=== PATIENT | male | born 1935 | race Caucasian/White ===

== ENCOUNTER 2021-07-06 08:07 | Inpatient (IN) ==
[2021-07-06] MEDS ORDERED: DEXAMETHASONE 4 MG/1 ML VIAL IV STA (08:16)
[2021-07-06 08:44] LABS: Basophils % 0.3 % (0.0-0.8); Eosinophils % 0.3 % (0.00-10.9); Hematocrit 37.2 VOL% (42.0-52.0); Hemoglobin 12.9 GM/DL (14.0-18.0); Immature Granulocytes % 1.5 %; Immature Granulocytes Absolute 0.16 #; Lymphocytes # 0.5 10*3/uL (1.4-4.0); Lymphocytes % 5.1 % (21.2-54.2); Mean Corpuscular HGB Conc 34.7 GM/DL (32-36); Mean Corpuscular Volume 100.3 FL (87-102); Mean Platelet Volume 10.7 FL (9.6-12.0); Monocytes % 16.6 % (1.7-12.7); Neutrophils % 76.2 % (38.7-73.9); Platelet Count 154 T/CUMM (130-400); Red Blood Count 3.71 MC/CUMM (3.8-5.5); Red Cell Distribution Width 14.1 % (9.3-17.3); White Blood Count 10.5 T/CUMM (4-12)
[2021-07-06 09:00] LABS: Albumin 2.9 G/DL (3.4-5.0); Bilirubin,Total 1.1 MG/DL (0.20-1.00); Calcium 8.9 MG/DL (8.5-10.1); Ferritin 177.7 ng/mL (26-388); Osmolality,Calculated 259.9 MOS/KG (273-304); Potassium 3.6 MMOL/L (3.5-5.1)
[2021-07-06 09:22] LABS: Lymphocytes 4 % (20-55); Platelet Estimate Adequate; Segmented Neutrophils 82 % (50-85); Total Cells Counted 100
[2021-07-06] MEDS ORDERED: DEXTROSE 10% 250 ML BAG IV PRN (10:27)
[2021-07-06] MEDS ORDERED: GLUCAGON 1 MG VIAL IM PRN (10:27)
[2021-07-06] MEDS ORDERED: ONDANSETRON 4 MG/2 ML VIAL IV PRN (10:29)
[2021-07-06] MEDS ORDERED: CETIRIZINE 10 MG TABLET PO PRN (10:29)
[2021-07-06] MEDS ORDERED: DOCUSATE SODIUM 100 MG CAPSULE PO PRN (10:29)
[2021-07-06] MEDS ORDERED: hydrALAZINE 20 MG/1 ML VIAL IV PRN (10:29)
[2021-07-06] MEDS ORDERED: SODIUM CHLORIDE 0.9% 1,000 ML IV SCH (12:00)
[2021-07-06] MEDS ORDERED: ALBUTEROL INHALER 18 GM INH PRN (12:14)
[2021-07-06] MEDS: ZINC SULFATE 220 MG CAPSULE PO SCH (16:20)
[2021-07-06] MEDS: ASCORBIC ACID 500 MG TABLET PO SCH ×2 (16:20→22:09)
[2021-07-06] MEDS: CHOLECALCIFEROL 1,000 UNIT TABLET PO SCH (16:20)
[2021-07-06] MEDS: AZITHROMYCIN INJ 500 MG in SODIUM CHLORIDE 0.9% 250 ML IV SCH (16:20)
[2021-07-06] MEDS: ENOXAPARIN 40 MG/0.4 ML SYRINGE SUBCUT SCH (16:20)
[2021-07-06] MEDS: cefTRIAXone 1,000 MG in SODIUM CHLORIDE 0.9% 100 ML IV SCH (16:21)
[2021-07-06] MEDS: methylPREDNISolone SOD SUC 40 MG/1 ML VIAL IV SCH ×2 (16:21→19:51)
[2021-07-06] MEDS: LORazepam 1 MG TABLET PO ONE ×2 (16:37→21:31)
[2021-07-06] MEDS ORDERED: LORazepam 1 MG TABLET PO ONE (21:00)
[2021-07-06] MEDS: METOPROLOL SUCCINATE XL 25 MG TABLET PO SCH (22:09)
[2021-07-06] MEDS: MONTELUKAST 10 MG TABLET PO SCH (22:09)
[2021-07-06] MEDS: SIMVASTATIN 40 MG TABLET PO SCH (22:09)
[2021-07-06] MEDS: FAMOTIDINE 20 MG TABLET PO SCH (22:10)
[2021-07-07] MEDS: methylPREDNISolone SOD SUC 40 MG/1 ML VIAL IV SCH (03:03)
[2021-07-07 07:23] LABS: Basophils % 0.3 % (0.0-0.8); Hematocrit 35.3 VOL% (42.0-52.0); Hemoglobin 12.4 GM/DL (14.0-18.0); Immature Granulocytes % 3.4 %; Immature Granulocytes Absolute 0.27 #; Lymphocytes # 0.7 10*3/uL (1.4-4.0); Lymphocytes % 8.2 % (21.2-54.2); Mean Corpuscular HGB Conc 35.1 GM/DL (32-36); Mean Corpuscular Volume 99.2 FL (87-102); Mean Platelet Volume 11.1 FL (9.6-12.0); Monocytes % 9.5 % (1.7-12.7); Neutrophils % 78.6 % (38.7-73.9); Platelet Count 150 T/CUMM (130-400); Red Blood Count 3.56 MC/CUMM (3.8-5.5); Red Cell Distribution Width 13.7 % (9.3-17.3); White Blood Count 7.9 T/CUMM (4-12)
[2021-07-07 07:28] LABS: Calcium 8.9 MG/DL (8.5-10.1); Osmolality,Calculated 264.9 MOS/KG (273-304); Potassium 3.9 MMOL/L (3.5-5.1)
[2021-07-07] MEDS ORDERED: ASPIRIN CHEW 81 MG TABLET PO SCH (09:00)
[2021-07-07] MEDS: TAMSULOSIN 0.4 MG CAPSULE PO SCH (10:22)
[2021-07-07] MEDS: FAMOTIDINE 20 MG TABLET PO SCH ×2 (10:22→21:11)
[2021-07-07] MEDS: POTASSIUM CHLORIDE 10 MEQ TABLET PO SCH (10:22)
[2021-07-07] MEDS: LOSARTAN 25 MG TABLET PO SCH (10:22)
[2021-07-07] MEDS: ASCORBIC ACID 500 MG TABLET PO SCH ×2 (10:23→21:11)
[2021-07-07] MEDS: ENOXAPARIN 40 MG/0.4 ML SYRINGE SUBCUT SCH (10:23)
[2021-07-07] MEDS: CHOLECALCIFEROL 1,000 UNIT TABLET PO SCH (10:23)
[2021-07-07] MEDS: ZINC SULFATE 220 MG CAPSULE PO SCH (10:23)
[2021-07-07] MEDS: allopurinoL 100 MG TABLET PO SCH (10:23)
[2021-07-07] MEDS: AZITHROMYCIN INJ 500 MG in SODIUM CHLORIDE 0.9% 250 ML IV SCH (10:24)
[2021-07-07] MEDS ORDERED: DEXAMETHASONE 4 MG/1 ML VIAL IV SCH (10:30)
[2021-07-07] MEDS: DEXAMETHASONE 4 MG/1 ML VIAL IV SCH ×2 (11:46→23:32)
[2021-07-07] MEDS: BENZONATATE 100 MG CAPSULE PO SCH ×3 (11:47→21:11)
[2021-07-07] MEDS: cefTRIAXone 1,000 MG in SODIUM CHLORIDE 0.9% 100 ML IV SCH (11:47)
[2021-07-07] MEDS ORDERED: BENZONATATE 100 MG CAPSULE PO SCH (21:00)
[2021-07-07] MEDS: MENTHOL/ZINC OXIDE OINT 71 GM JAR TOP SCH (21:11)
[2021-07-07] MEDS: SIMVASTATIN 40 MG TABLET PO SCH (21:11)
[2021-07-07] MEDS: MONTELUKAST 10 MG TABLET PO SCH (21:11)
[2021-07-07] MEDS: METOPROLOL SUCCINATE XL 25 MG TABLET PO SCH (21:11)
[2021-07-07] MEDS: ACETAMINOPHEN 325 MG TABLET PO PRN (21:15)
[2021-07-08] MEDS: ACETAMINOPHEN 325 MG TABLET PO PRN (03:14)
[2021-07-08 05:13] LABS: Basophils % 0.2 % (0.0-0.8); Hematocrit 31.5 VOL% (42.0-52.0); Hemoglobin 11.3 GM/DL (14.0-18.0); Immature Granulocytes % 2.4 %; Immature Granulocytes Absolute 0.38 #; Lymphocytes # 0.7 10*3/uL (1.4-4.0); Lymphocytes % 4.3 % (21.2-54.2); Mean Corpuscular HGB Conc 35.9 GM/DL (32-36); Mean Corpuscular Volume 98.4 FL (87-102); Monocytes % 8.8 % (1.7-12.7); Neutrophils % 84.3 % (38.7-73.9); Platelet Count 169 T/CUMM (130-400); Red Cell Distribution Width 13.6 % (9.3-17.3); White Blood Count 16.1 T/CUMM (4-12)
[2021-07-08 05:14] LABS: INR 1.1; PT Patient Result 11.9 SECS (10.5-12.0); Partial Thromboplastin Time 30.8 SECS (23.8-32.1)
[2021-07-08 05:25] LABS: Albumin 2.6 G/DL (3.4-5.0); Bilirubin,Total 0.9 MG/DL (0.20-1.00); Calcium 8.7 MG/DL (8.5-10.1); Osmolality,Calculated 264.1 MOS/KG (273-304); Potassium 4.4 MMOL/L (3.5-5.1); Total Protein 5.4 G/DL (6.4-8.2)
[2021-07-08 05:42] LABS: Hypochromia Slight; Lymphocytes 7 % (20-55); Microcytosis Slight; Platelet Estimate Adequate; Segmented Neutrophils 86 % (50-85); Total Cells Counted 100
[2021-07-08] MEDS: CEFEPIME 1,000 MG in SODIUM CHLORIDE 0.9% 100 ML IV SCH ×3 (07:58→21:54)
[2021-07-08] MEDS: ASCORBIC ACID 500 MG TABLET PO SCH ×2 (08:00→21:51)
[2021-07-08] MEDS: FAMOTIDINE 20 MG TABLET PO SCH ×2 (08:00→21:51)
[2021-07-08] MEDS: TAMSULOSIN 0.4 MG CAPSULE PO SCH (08:00)
[2021-07-08] MEDS: LOSARTAN 25 MG TABLET PO SCH (08:01)
[2021-07-08] MEDS: BENZONATATE 100 MG CAPSULE PO SCH ×3 (08:01→21:52)
[2021-07-08] MEDS: CHOLECALCIFEROL 1,000 UNIT TABLET PO SCH (08:01)
[2021-07-08] MEDS: allopurinoL 100 MG TABLET PO SCH (08:01)
[2021-07-08] MEDS: ZINC SULFATE 220 MG CAPSULE PO SCH (08:01)
[2021-07-08] MEDS: POTASSIUM CHLORIDE 10 MEQ TABLET PO SCH (08:01)
[2021-07-08] MEDS ORDERED: ALUM/MAG/SIMETH/LIDO VISC 1:1 30 ML BOTTLE PO ONE (09:08)
[2021-07-08] MEDS: MENTHOL/ZINC OXIDE OINT 71 GM JAR TOP SCH ×2 (09:19→21:55)
[2021-07-08] MEDS: GABAPENTIN 400 MG CAPSULE PO SCH ×3 (09:19→21:51)
[2021-07-08] MEDS: AZITHROMYCIN INJ 500 MG in SODIUM CHLORIDE 0.9% 250 ML IV SCH (09:42)
[2021-07-08] MEDS: DEXAMETHASONE 4 MG/1 ML VIAL IV SCH ×2 (10:56→22:30)
[2021-07-08] MEDS: ALUMINUM/MAGNES/SIMETH MAX STR 30 ML UDCUP PO PRN ×2 (10:56→14:02)
[2021-07-08 11:02] LABS: Hematocrit 29.1 VOL% (42.0-52.0); Hemoglobin 10.4 GM/DL (14.0-18.0)
[2021-07-08] MEDS ORDERED: CEFEPIME 2,000 MG in SODIUM CHLORIDE 0.9% 100 ML IV SCH (12:00)
[2021-07-08] MEDS ORDERED: fentaNYL 100 MCG/2 ML VIAL IV ONE (13:34)
[2021-07-08] MEDS ORDERED: MIDAZOLAM 2 MG/2 ML VIAL IV ONE (13:34)
[2021-07-08] MEDS ORDERED: SODIUM CHLORIDE 0.45% 1,000 ML IV SCH (14:00)
[2021-07-08] MEDS ORDERED: HEPARIN/NACL 0.9% 2 UNITS/ML 2,000 UNIT/1,000 ML BAG IV ONE (14:51)
[2021-07-08] MEDS ORDERED: HEPARIN/NACL 0.9% 2 UNITS/ML 4,000 UNIT/2,000 ML BAG IV ONE (14:52)
[2021-07-08] MEDS: MONTELUKAST 10 MG TABLET PO SCH (21:51)
[2021-07-08] MEDS: METOPROLOL SUCCINATE XL 25 MG TABLET PO SCH (21:51)
[2021-07-08] MEDS: SIMVASTATIN 40 MG TABLET PO SCH (21:52)
[2021-07-09] MEDS: CEFEPIME 1,000 MG in SODIUM CHLORIDE 0.9% 100 ML IV SCH ×4 (01:30→21:10)
[2021-07-09 07:43] LABS: Basophils % 0.1 % (0.0-0.8); Hematocrit 28.3 VOL% (42.0-52.0); Hemoglobin 9.9 GM/DL (14.0-18.0); Immature Granulocytes % 2.7 %; Immature Granulocytes Absolute 0.36 #; Lymphocytes # 0.6 10*3/uL (1.4-4.0); Lymphocytes % 4.3 % (21.2-54.2); Mean Corpuscular Volume 99.6 FL (87-102); Mean Platelet Volume 10.9 FL (9.6-12.0); Monocytes % 7.7 % (1.7-12.7); Neutrophils % 85.2 % (38.7-73.9); Platelet Count 201 T/CUMM (130-400); Red Blood Count 2.84 MC/CUMM (3.8-5.5); Red Cell Distribution Width 13.6 % (9.3-17.3); White Blood Count 13.4 T/CUMM (4-12)
[2021-07-09 07:52] LABS: Calcium 8.8 MG/DL (8.5-10.1); Osmolality,Calculated 269.7 MOS/KG (273-304); Potassium 4.5 MMOL/L (3.5-5.1)
[2021-07-09 07:53] LABS: PT Patient Result 11.3 SECS (10.5-12.0); Partial Thromboplastin Time 23.5 SECS (23.8-32.1)
[2021-07-09 07:56] LABS: Ferritin 234.2 ng/mL (26-388)
[2021-07-09] MEDS: CHOLECALCIFEROL 1,000 UNIT TABLET PO SCH (08:14)
[2021-07-09] MEDS: MENTHOL/ZINC OXIDE OINT 71 GM JAR TOP SCH ×2 (08:14→21:07)
[2021-07-09] MEDS: allopurinoL 100 MG TABLET PO SCH (08:14)
[2021-07-09] MEDS: POTASSIUM CHLORIDE 10 MEQ TABLET PO SCH (08:15)
[2021-07-09] MEDS: BENZONATATE 100 MG CAPSULE PO SCH ×3 (08:15→21:04)
[2021-07-09] MEDS: LOSARTAN 25 MG TABLET PO SCH (08:15)
[2021-07-09] MEDS: FAMOTIDINE 20 MG TABLET PO SCH ×2 (08:15→21:04)
[2021-07-09] MEDS: ASCORBIC ACID 500 MG TABLET PO SCH ×2 (08:15→21:06)
[2021-07-09] MEDS: TAMSULOSIN 0.4 MG CAPSULE PO SCH (08:16)
[2021-07-09] MEDS: ZINC SULFATE 220 MG CAPSULE PO SCH (08:16)
[2021-07-09] MEDS: GABAPENTIN 400 MG CAPSULE PO SCH ×3 (08:16→21:04)
[2021-07-09] MEDS: ACETAMINOPHEN 325 MG TABLET PO PRN (08:20)
[2021-07-09 10:43] LABS: Burr Cells Few; Lymphocytes 3 % (20-55); Platelet Estimate Normal; Segmented Neutrophils 94 % (50-85); Total Cells Counted 100
[2021-07-09] MEDS: DEXAMETHASONE 4 MG/1 ML VIAL IV SCH ×2 (12:06→22:25)
[2021-07-09] MEDS: ALUMINUM/MAGNES/SIMETH MAX STR 30 ML UDCUP PO PRN (19:08)
[2021-07-09] MEDS: MONTELUKAST 10 MG TABLET PO SCH (21:04)
[2021-07-09] MEDS: SIMVASTATIN 40 MG TABLET PO SCH (21:04)
[2021-07-09] MEDS: METOPROLOL SUCCINATE XL 25 MG TABLET PO SCH (21:04)
[2021-07-10] MEDS: CEFEPIME 1,000 MG in SODIUM CHLORIDE 0.9% 100 ML IV SCH ×4 (02:06→20:52)
[2021-07-10 07:21] LABS: Basophils % 0.1 % (0.0-0.8); Hematocrit 26.4 VOL% (42.0-52.0); Immature Granulocytes % 2.6 %; Immature Granulocytes Absolute 0.36 #; Lymphocytes # 0.5 10*3/uL (1.4-4.0); Lymphocytes % 3.9 % (21.2-54.2); Mean Corpuscular HGB Conc 34.1 GM/DL (32-36); Mean Corpuscular Volume 102.3 FL (87-102); Mean Platelet Volume 10.8 FL (9.6-12.0); Monocytes % 7.8 % (1.7-12.7); Neutrophils % 85.6 % (38.7-73.9); Platelet Count 202 T/CUMM (130-400); Red Blood Count 2.58 MC/CUMM (3.8-5.5); Red Cell Distribution Width 13.9 % (9.3-17.3); White Blood Count 13.7 T/CUMM (4-12)
[2021-07-10 07:26] LABS: Calcium 8.8 MG/DL (8.5-10.1); Osmolality,Calculated 277.2 MOS/KG (273-304); Potassium 4.7 MMOL/L (3.5-5.1)
[2021-07-10] MEDS: TAMSULOSIN 0.4 MG CAPSULE PO SCH (08:20)
[2021-07-10] MEDS: LOSARTAN 25 MG TABLET PO SCH (08:21)
[2021-07-10] MEDS: BENZONATATE 100 MG CAPSULE PO SCH ×3 (08:21→20:47)
[2021-07-10] MEDS: FAMOTIDINE 20 MG TABLET PO SCH ×2 (08:21→20:47)
[2021-07-10] MEDS: allopurinoL 100 MG TABLET PO SCH (08:21)
[2021-07-10] MEDS: METOPROLOL SUCCINATE XL 25 MG TABLET PO SCH ×2 (08:21→22:27)
[2021-07-10] MEDS: GABAPENTIN 400 MG CAPSULE PO SCH ×3 (08:21→22:25)
[2021-07-10] MEDS: ASCORBIC ACID 500 MG TABLET PO SCH ×2 (08:21→20:48)
[2021-07-10] MEDS: ZINC SULFATE 220 MG CAPSULE PO SCH (08:21)
[2021-07-10] MEDS: CHOLECALCIFEROL 1,000 UNIT TABLET PO SCH (08:21)
[2021-07-10] MEDS: POTASSIUM CHLORIDE 10 MEQ TABLET PO SCH (08:21)
[2021-07-10] MEDS: MENTHOL/ZINC OXIDE OINT 71 GM JAR TOP SCH ×2 (08:22→20:53)
[2021-07-10 09:41] LABS: Atypical Lymphocytes Few; Band Neutrophils 1 % (0-10); Lymphocytes 6 % (20-55); Metamyelocytes 1 %; Nucleated Red Blood Cells 1 (0-5); Segmented Neutrophils 86 % (50-85); Total Cells Counted 100
[2021-07-10 09:42] LABS: Anisocytosis 1+; Platelet Estimate Normal; Reactive Lymphocytes Few
[2021-07-10] MEDS: DEXAMETHASONE 4 MG/1 ML VIAL IV SCH ×2 (10:31→22:26)
[2021-07-10] MEDS: FLUCONAZOLE INJ 200 MG/100 ML PREMIX IV SCH (10:31)
[2021-07-10] MEDS: SIMVASTATIN 40 MG TABLET PO SCH (20:48)
[2021-07-10] MEDS: MONTELUKAST 10 MG TABLET PO SCH (20:48)
[2021-07-11] MEDS: CEFEPIME 1,000 MG in SODIUM CHLORIDE 0.9% 100 ML IV SCH ×3 (01:29→15:14)
[2021-07-11 06:08] LABS: Basophils % 0.2 % (0.0-0.8); Hematocrit 26.6 VOL% (42.0-52.0); Hemoglobin 9.1 GM/DL (14.0-18.0); Immature Granulocytes % 4.6 %; Lymphocytes # 0.7 10*3/uL (1.4-4.0); Lymphocytes % 4.1 % (21.2-54.2); Mean Corpuscular HGB Conc 34.2 GM/DL (32-36); Mean Corpuscular Volume 103.5 FL (87-102); Mean Platelet Volume 10.8 FL (9.6-12.0); Monocytes % 4.9 % (1.7-12.7); NRBC # 0.02 10*3/uL; Neutrophils % 86.2 % (38.7-73.9); Platelet Count 201 T/CUMM (130-400); Red Blood Count 2.57 MC/CUMM (3.8-5.5); Red Cell Distribution Width 13.6 % (9.3-17.3); White Blood Count 17.4 T/CUMM (4-12)
[2021-07-11 06:33] LABS: Calcium 8.3 MG/DL (8.5-10.1); Osmolality,Calculated 272.5 MOS/KG (273-304); Potassium 4.5 MMOL/L (3.5-5.1)
[2021-07-11 06:50] LABS: Hypochromia 1+; Lymphocytes 3 % (20-55); Microcytosis 1+; Myelocytes 1 %; Platelet Estimate Normal; Segmented Neutrophils 89 % (50-85); Total Cells Counted 100
[2021-07-11] MEDS: CHOLECALCIFEROL 1,000 UNIT TABLET PO SCH (09:39)
[2021-07-11] MEDS: POTASSIUM CHLORIDE 10 MEQ TABLET PO SCH (09:39)
[2021-07-11] MEDS: METOPROLOL SUCCINATE XL 25 MG TABLET PO SCH ×2 (09:40→22:07)
[2021-07-11] MEDS: GABAPENTIN 400 MG CAPSULE PO SCH ×3 (09:40→22:08)
[2021-07-11] MEDS: TAMSULOSIN 0.4 MG CAPSULE PO SCH (09:40)
[2021-07-11] MEDS: FAMOTIDINE 20 MG TABLET PO SCH ×2 (09:40→22:08)
[2021-07-11] MEDS: BENZONATATE 100 MG CAPSULE PO SCH ×3 (09:40→22:08)
[2021-07-11] MEDS: FLUCONAZOLE INJ 200 MG/100 ML PREMIX IV SCH (09:41)
[2021-07-11] MEDS: allopurinoL 100 MG TABLET PO SCH (09:41)
[2021-07-11] MEDS: LOSARTAN 25 MG TABLET PO SCH (09:41)
[2021-07-11] MEDS: PANTOPRAZOLE 40 MG TABLET PO SCH (09:41)
[2021-07-11] MEDS: ASCORBIC ACID 500 MG TABLET PO SCH ×2 (09:44→22:08)
[2021-07-11] MEDS: ZINC SULFATE 220 MG CAPSULE PO SCH (09:45)
[2021-07-11] MEDS ORDERED: SODIUM CHLORIDE 0.9% 1,000 ML IV PRN (10:29)
[2021-07-11] MEDS ORDERED: DEXAMETHASONE 0.5 MG TABLET PO SCH ×2 (10:30→11:00)
[2021-07-11] MEDS: MENTHOL/ZINC OXIDE OINT 71 GM JAR TOP SCH ×2 (11:53→22:09)
[2021-07-11] MEDS: DEXAMETHASONE 4 MG TABLET PO SCH ×2 (13:29→22:09)
[2021-07-11] MEDS: ACETAMINOPHEN 325 MG TABLET PO PRN (15:17)
[2021-07-11] MEDS: SIMVASTATIN 40 MG TABLET PO SCH (22:07)
[2021-07-11] MEDS: MONTELUKAST 10 MG TABLET PO SCH (22:07)
[2021-07-11] MEDS: LORazepam 1 MG TABLET PO SCH (22:08)
[2021-07-12] MEDS: CEFEPIME 1,000 MG in SODIUM CHLORIDE 0.9% 100 ML IV SCH ×5 (02:16→21:55)
[2021-07-12 05:30] LABS: Basophils % 0.2 % (0.0-0.8); Hematocrit 28.1 VOL% (42.0-52.0); Hemoglobin 9.7 GM/DL (14.0-18.0); Immature Granulocytes % 5.3 %; Immature Granulocytes Absolute 0.92 #; Lymphocytes # 0.7 10*3/uL (1.4-4.0); Lymphocytes % 4.1 % (21.2-54.2); Mean Corpuscular HGB Conc 34.5 GM/DL (32-36); Mean Corpuscular Volume 97.9 FL (87-102); Mean Platelet Volume 10.7 FL (9.6-12.0); Monocytes % 5.3 % (1.7-12.7); Neutrophils % 85.1 % (38.7-73.9); Platelet Count 206 T/CUMM (130-400); Red Blood Count 2.87 MC/CUMM (3.8-5.5); Red Cell Distribution Width 15.8 % (9.3-17.3); White Blood Count 17.4 T/CUMM (4-12)
[2021-07-12 06:06] LABS: Albumin 2.6 G/DL (3.4-5.0); Band Neutrophils 2 % (0-10); Calcium 8.6 MG/DL (8.5-10.1); Hypochromia 1+; Lymphocytes 5 % (20-55); Myelocytes 1 %; Osmolality,Calculated 266.9 MOS/KG (273-304); Potassium 4.5 MMOL/L (3.5-5.1); Segmented Neutrophils 87 % (50-85); Total Cells Counted 100; Total Protein 5.3 G/DL (6.4-8.2)
[2021-07-12 06:07] LABS: Microcytosis 1+; Ovalocytes Slight; Platelet Estimate Normal
[2021-07-12] MEDS: SODIUM CHLORIDE 0.9% 1,000 ML IV SCH (08:36)
[2021-07-12] MEDS: CHOLECALCIFEROL 1,000 UNIT TABLET PO SCH (08:37)
[2021-07-12] MEDS: BENZONATATE 100 MG CAPSULE PO SCH ×3 (08:37→21:55)
[2021-07-12] MEDS: ASCORBIC ACID 500 MG TABLET PO SCH ×2 (08:37→21:55)
[2021-07-12] MEDS: METOPROLOL SUCCINATE XL 25 MG TABLET PO SCH ×2 (08:37→21:55)
[2021-07-12] MEDS: PANTOPRAZOLE 40 MG TABLET PO SCH (08:37)
[2021-07-12] MEDS: allopurinoL 100 MG TABLET PO SCH (08:38)
[2021-07-12] MEDS: LOSARTAN 25 MG TABLET PO SCH (08:38)
[2021-07-12] MEDS: POTASSIUM CHLORIDE 10 MEQ TABLET PO SCH (08:38)
[2021-07-12] MEDS: DEXAMETHASONE 4 MG TABLET PO SCH ×2 (08:38→21:55)
[2021-07-12] MEDS: FAMOTIDINE 20 MG TABLET PO SCH ×2 (08:38→21:55)
[2021-07-12] MEDS: GABAPENTIN 400 MG CAPSULE PO SCH ×3 (08:38→21:55)
[2021-07-12] MEDS: TAMSULOSIN 0.4 MG CAPSULE PO SCH (08:38)
[2021-07-12] MEDS: ZINC SULFATE 220 MG CAPSULE PO SCH (08:39)
[2021-07-12] MEDS: MENTHOL/ZINC OXIDE OINT 71 GM JAR TOP SCH ×2 (08:40→21:55)
[2021-07-12] MEDS ORDERED: SUCRALFATE 1 GM/10 ML UDCUP PO ONE (12:30)
[2021-07-12] MEDS: MONTELUKAST 10 MG TABLET PO SCH (21:55)
[2021-07-12] MEDS: SIMVASTATIN 40 MG TABLET PO SCH (21:55)
[2021-07-12] MEDS: LORazepam 1 MG TABLET PO SCH (21:55)
[2021-07-13] MEDS: CEFEPIME 1,000 MG in SODIUM CHLORIDE 0.9% 100 ML IV SCH ×3 (02:55→14:27)
[2021-07-13] MEDS: SODIUM CHLORIDE 0.9% 1,000 ML IV SCH (06:05)
[2021-07-13 06:20] LABS: Basophils # 0.1 10*3/uL (0.0-0.2); Basophils % 0.3 % (0.0-0.8); Hematocrit 29.5 VOL% (42.0-52.0); Hemoglobin 10.1 GM/DL (14.0-18.0); Immature Granulocytes % 6.7 %; Immature Granulocytes Absolute 1.22 #; Lymphocytes # 0.7 10*3/uL (1.4-4.0); Mean Corpuscular HGB Conc 34.2 GM/DL (32-36); Mean Corpuscular Volume 98.7 FL (87-102); Mean Platelet Volume 10.3 FL (9.6-12.0); Monocytes % 6.2 % (1.7-12.7); Neutrophils % 82.8 % (38.7-73.9); Platelet Count 229 T/CUMM (130-400); Red Blood Count 2.99 MC/CUMM (3.8-5.5); Red Cell Distribution Width 15.9 % (9.3-17.3); White Blood Count 18.2 T/CUMM (4-12)
[2021-07-13 06:36] LABS: Calcium 8.5 MG/DL (8.5-10.1); Osmolality,Calculated 266.9 MOS/KG (273-304); Potassium 4.6 MMOL/L (3.5-5.1)
[2021-07-13 06:41] LABS: Band Neutrophils 2 % (0-10); Lymphocytes 3 % (20-55); Platelet Estimate Adequate; Segmented Neutrophils 89 % (50-85); Total Cells Counted 100
[2021-07-13 06:42] LABS: Hypochromia Slight; Microcytosis Slight
[2021-07-13] MEDS: DEXAMETHASONE 4 MG TABLET PO SCH (09:45)
[2021-07-13] MEDS: allopurinoL 100 MG TABLET PO SCH (09:46)
[2021-07-13] MEDS: LOSARTAN 25 MG TABLET PO SCH (09:46)
[2021-07-13] MEDS: BENZONATATE 100 MG CAPSULE PO SCH (09:46)
[2021-07-13] MEDS: METOPROLOL SUCCINATE XL 25 MG TABLET PO SCH (09:46)
[2021-07-13] MEDS: GABAPENTIN 400 MG CAPSULE PO SCH (09:46)
[2021-07-13] MEDS: PANTOPRAZOLE 40 MG TABLET PO SCH (09:47)
[2021-07-13] MEDS: TAMSULOSIN 0.4 MG CAPSULE PO SCH (09:47)
[2021-07-13] MEDS: CHOLECALCIFEROL 1,000 UNIT TABLET PO SCH (09:47)
[2021-07-13] MEDS: POTASSIUM CHLORIDE 10 MEQ TABLET PO SCH (09:47)
[2021-07-13] MEDS: ZINC SULFATE 220 MG CAPSULE PO SCH (09:47)
[2021-07-13] MEDS: MENTHOL/ZINC OXIDE OINT 71 GM JAR TOP SCH (09:47)
[2021-07-13] MEDS: ASCORBIC ACID 500 MG TABLET PO SCH (09:47)
[2021-07-13] MEDS: FAMOTIDINE 20 MG TABLET PO SCH (09:47)
[2021-07-13] MEDS: ACETAMINOPHEN 325 MG TABLET PO PRN (09:51)
[2021-07-13] MEDS: ALUMINUM/MAGNES/SIMETH MAX STR 30 ML UDCUP PO PRN (10:49)
[2021-07-13 12:02] VITALS: BP 112/66
== END 2021-07-13 14:20 | disposition home or self-care (01) | DRG 987 ==
LOC: EDBD → EDUNIT# → N.EDINP 08:07 → N.ED 08:07 → SUATTDRO 09:49 → N.3E 16:21 → SUATTDRO 07-07 11:28
PROVIDERS: ADMIT Internal Medicine; ATTEND Internal Medicine